=== PATIENT | female | born 2005 | race Caucasian/White ===

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

== ENCOUNTER 2025-02-26 13:10 | Emergency (ER) | payer BC, SELFPAY ==
--- OUTSIDE RECORDS SUMMARY | 2010-01-14 11:00 | XMS_ITS | Continuity of Care Document ---
Author Organization [facility] Address [address] [place] [address] Phone Care Team Providers Care Mill Operator Head Name Role Phone Foster OD, Ryan Unavailable Unavailable Procedures Procedure Date Eye Exam & Treatment Refraction Advance Directives Directive Yes / No Effective Date File Name No Information Encounters Encounter Description Practice Location Reason(s) For Visit Diagnoses Date Provider Providers Copied on Encounter [facility], [address], [place], [place], [id number], [place] tel:[phone] [facility] No Information [phone] Foster OD Ryan. [address] , [address], [place], [address], [place]. tel:[phone] Family History Family Member Type Diagnosis Age At Onset No Information Payers Payer name Insurance type Covered constitution party ID Authoriza tion(s) Medicaid [facility] [id number] Social History Type Description Quantity Date Captured [...]
--- OUTSIDE RECORDS SUMMARY | 2010-01-14 11:00 | XMS_ITS | Continuity of Care Document ---
Author Organization [facility] Address [address] [place] [address] Phone Care Team Providers Care Sports Activities Foul Judge Name Role Phone Foster OD, Ryan Unavailable Unavailable Procedures Procedure Date Eye Exam & Treatment Refraction Advance Directives Directive Yes / No Effective Date File Name No Information Encounters Encounter Description Practice Location Reason(s) For Visit Diagnoses Date Provider Providers Copied on Encounter [facility], [address], [place], [place], [id number], [place] tel:[phone] [facility] [place] No Information [phone] Foster OD Ryan. [address] , [address], [place], [address], [place]. tel:[phone] Family History Family Member Type Diagnosis Age At Onset No Information Payers Payer name Insurance type Covered constitution party ID Authoriza tion(s) Medicaid [facility] [id number] Social History Type Description Quantity Date Captured [...]
--- NOTE | ~2025-02-26 | XR_ITS ---
Examination: XR chest 1V portable Clinical History: Drug overdose Comparison: 12/25/2020 Technique: Portable AP Findings: Heart size normal. Hazy opacity left lung probably overlying soft tissue artifact. Lungs otherwise clear No acute bony abnormality. IMPRESSION: 1. No definite acute cardiopulmonary findings given portable technique. Can consider PA and lateral films. Reviewed, dictated and finalized at location R. IMPRESSION: 1. No definite acute cardiopulmonary findings given portable technique. Can co nsider PA and lateral films.
[2025-02-26 13:17] VITALS: BP 140/102; PULSE 118; RESP 16; TEMP 36.6; O2SAT 100
--- NOTE | 2025-02-26 13:23 | ECG_ITS ---
Test Date: 2025-02-26 13:30:54 Measurements Intervals Atkins Rate: 111 P: 23 VA: 159 QRS: 62 QRSD: 98 T: -1 QT: 319 QTc: 435 Interpretive Statements SINUS TACHYCARDIA NONSPECIFIC T-WAVE ABNORMALITY ABNORMAL ECG No previous ECG available for comparison Electronically Signed On 02-26-2025 16:51:24 CDT by Deep Young M.D.
--- NOTE | 2025-02-26 13:30 | ED_ITS ---
HPI - General Adult General Chief complaint: Overdose Stated complaint: Overdose Effexor Time Seen by Provider: 02/26/25 13:16 Source: patient Mode of arrival: ambulatory Limitations: no limitations History of Present Illness HPI narrative: 19 years old white female came to the ED by private car from home complaining of feeling worthless, depressed most of her life. Been in and out psych facility between 9 and 13 years old. Currently have psychiatrist and therapist, diagnosis of possible borderline personality disorder. At 10:00 a.m. today patient took venlafaxine 150 mg unknown numbers and venlafaxine 37.5 unknown numbers.. Patient went to sleep, workup scared and worry, crying, does not Wanna and feel guilty about what she did, grandmother brought her to the emergency room. Currently patient feeling guilty about what happened. And keeps repeating that she does Wanna and that is with big mistake. Related Data Home Medications ?Medication ?Instructions ?Recorded ?Confirmed ?Last Taken ?Type aripiprazole 2 mg tablet 2 mg PO HS 01/07/23 01/11/23 Unknown History venlafaxine 75 mg capsule,extended 150 mg PO DAILY 01/11/23 Unknown History release 24 hr Allergies Allergy/AdvReac Type Severity Reaction Status Date / Time amoxicillin (From Augmentin) AdvReac Mild Rash Verified 09/21/23 18:19 clavulanic acid (From AdvReac Mild Rash Verified 09/21/23 18:19 Augmentin) POTASSIUM CLAVULANATE AdvReac Mild Rash Uncoded 09/21/23 18:19 Review of Systems 2 Review of Systems: All systems reviewed & are unremarkable except as noted in HPI and below PMFSH Past Medical History Medical History Anxiety Surgical History Surgical History History of tonsillectomy Family History Family History Father Alcoholism Depression Anxiety Mother Alcoholism Anxiety Depression Thyroid disorder Grandparent Thyroid disorder Hypertension Social History Social History Smoking status: Never smoker Tobacco type: e-cigarettes/vaping Alcohol intake: never Substance use: never Living arrangements: other Additional living arrangements comments: With grandmother, legal guardian. Gender identity (if verbalized by the patient): Female Exam 2 Narrative: General appearance: Well-developed, well-nourished crying Skin: Normal color Head: Normocephalic, nontraumatic Eyes: Clear conjunctiva ENT: Oropharynx normal, ears normal, nose normal Neck: Supple, nontender Chest and respiratory: Airway patent, no respiratory distress, no accessory muscle use Heart: Regular rate/rhythm Abdomen: Soft, nontender, no organomegaly, quiet bowel sounds Vascular: Normal peripheral pulses, normal capillary refill. 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 is normal as tested, no gross motor deficit Course Vital Signs Vital signs: Vital Signs Temperature 36.6 C 02/26/25 13:17 Pulse Rate 118 H 02/26/25 13:17 Respiratory Rate 16 02/26/25 13:17 Blood Pressure 140/102 H 02/26/25 13:17 Pulse Oximetry 100 02/26/25 13:17 Oxygen Delivery Room Air 02/26/25 13:17 Temperature 36.6 C 02/26/25 13:17 Pulse Rate 102 H 02/26/25 19:50 Respiratory Rate 12 02/26/25 19:50 Blood Pressure 146/95 H 02/26/25 19:50 Pulse Oximetry 99 02/26/25 19:50 Oxygen Delivery Room Air 02/26/25 13:17 Medical Decision Making MDM Narrative Medical decision making narrative: Patient is medically clear for psych evaluation Patient cleared by poison Control for psych evaluation and admission Patient care turned over to Dr. Rao at shift change, awaiting disposition. Patient been resting quietly in the emergency room without any issues or problems. Differential Diagnosis Differential Diagnosis: serotonin syndrome, Major depression, anxiety, suicidal Vital Signs Vital Signs: Vital Signs Temperature 36.6 C 02/26/25 13:17 Pulse Rate 118 H 02/26/25 13:17 Respiratory Rate 16 02/26/25 13:17 Blood Pressure 140/102 H 02/26/25 13:17 Pulse Oximetry 100 02/26/25 13:17 Oxygen Delivery Room Air 02/26/25 13:17 Temperature 36.6 C 02/26/25 13:17 Pulse Rate 102 H 02/26/25 19:50 Respiratory Rate 12 02/26/25 19:50 Blood Pressure 146/95 H 02/26/25 19:50 Pulse Oximetry 99 02/26/25 19:50 Oxygen Delivery Room Air 02/26/25 13:17 Lab Data 02/26/25 13:28 02/26/25 13:28 Labs: Lab Results 02/26/25 02/26/25 Range/Units 13:28 13:32 WBC 12.0 H (4.5-10.0) K/mm3 RBC 4.85 (4.2-5.4) M/mm3 Hgb 14.3 (12.0-15.0) g/dL Hct 45.3 (37.0-47.0) % MCV 93.4 (80-100) fl MCH 29.5 (26-34) pg MCHC 31.6 L (32-36) g/dl RDW 12.4 (11.5-14.5) % Plt Count 286 (150-375) k/mm3 MPV 10.6 H (7.4-10.4) fl Immature Gran % (Auto) 0.9 H (0-0.5) % Neut % (Auto) 65.2 (45.5-73.1) % Lymph % (Auto) 28.7 (18.3-44.2) % [place] % (Auto) 4.6 (2.6-8.5) % Eos % (Auto) 0.4 (0-4.4) % Baso % (Auto) 0.2 (0.2-1.2) % Lymph # (Auto) 3.45 H (0.9-3.2) K/mm3 [place] # (Auto) 0.6 (0.1-0.6) K/mm3 Eos # (Auto) 0.1 (0-0.3) K/mm3 Baso # (Auto) 0.0 (0.0-0.1) K/mm3 Abs Immat Gran (auto) 0.11 H (0.00-0.031) K/mm3 Absolute Neuts (auto) 7.9 H (1.3-6.7) K/mm3 Absolute Nucleated RBC 0.000 (0.0-0.012) K/mm3 Nucleated RBC % 0.0 (0.0-0.2) % Sodium 139 (137-145) mmol/L Potassium 4.2 (3.4-5.0) mmol/L Chloride 106 (98-107) mmol/L Carbon Dioxide 28 (22-30) mmol/L Anion Gap 5 (4-12) mmol/L BUN 7 (7-17) mg/dL Creatinine 0.71 (0.7-1.0) mg/dL Estim Creat Clear Calc Not Reportable Estimated GFR > 60 (59 - ) Glucose 82 (65-110) mg/dL Calcium 9.5 (8.4-10.2) mg/dL Total Bilirubin 0.5 (0.2-1.3) mg/dL AST 35 (14-36) U/L ALT 50 H (6-35) U/L Alkaline Phosphatase 82 (38-126) U/L Total Protein 7.2 (6.3-8.2) g/dL Albumin 4.3 (3.5-5.1) g/dL TSH 3.490 (0.465-4.680) uIU/mL Urine Color Yellow (Yellow) Urine Appearance Clear (Clear) Urine pH 7.5 (5.0-9.0) Ur Specific [place] 1.009 (1.001-1.035) Urine Protein Negative (Negative) mg/dL Urine Glucose (UA) Negative (Negative) mg/dL Urine Ketones Negative (Negative) mg/dL Ur Blood (Man) Negative (Negative) Urine Nitrate Negative (Negative) Urine Bilirubin Negative (Negative) Urine Urobilinogen 0.2 (<2.0) mg/dL Leukocyte Esterase Rfl Negative (Negative) RICHAR/UL POC Urine HCG, Qual Negative (Negative) Salicylates < 1.0 L (2-20) mg/dL Urine Opiates Screen Negative (Negative) Urine Methadone Screen Negative (Negative) Acetaminophen < 10 L (10-30) ug/mL Ur Barbiturates Screen Negative (Negative) Ur Phencyclidine Scrn Negative (Negative) Ur Amphetamine Screen Negative (Negative) U Benzodiazepines Scrn Negative (Negative) Urine Cocaine Screen Negative (Negative) U Cannabinoids Screen Positive A (Negative) Ethyl Alcohol < 10 (<10) mg/dL SARS-CoV-2 RNA (RT-PCR) Negative (Negative) Imaging Data Radiologist's impression: Impressions Chest X-Ray 02/26/25 13:56 IMPRESSION: 1. No definite acute cardiopulmonary findings given portable technique. Can consider PA and lateral films. ECG Data EKG #1: Attestation: I personally reviewed and interpreted this ECG as follows: ECG completion date: 02/26/25 Ischemic changes: acute STEMI, acute NSTEMI, ST elevation, non-specific ST-T wave changes, q waves, poor r wave progression, t wave inversions, MD segment depression and other Interpretation: Sinus tachycardia 111 beats per minute, nonspecific T-wave abnormality, abnormal EKG Critical Care Time Critical Care Time Critical Care Time: Yes Total Critical Care Time: 30 Discharge Plan Discharge Clinical Impression: Depression with suicidal ideation Patient Disposition: Acute Care Hospital Condition: Stable Patient Language: Czech Prescriptions: No Action venlafaxine 75 mg capsule,extended release 24hr 150 mg PO DAILY triamcinolone acetonide 0.1 % cream 1 applic topical BID 7 Days Qty: 30 0RF aripiprazole 2 mg tablet 2 mg PO HS [id number] 3.5-10,000-1 mg/mL-unit/mL-% drops,suspension 5 drp LEFT EAR Q6H 7 Days Qty: 10 0RF cefdinir 300 mg capsule 300 mg PO Q12H 10 Days Qty: 20 0RF prednisone 50 mg tablet 50 mg PO DAILY Qty: 5 0RF Zyrtec 10 mg capsule 10 mg PO DAILY Qty: 30 0RF famotidine 20 mg tablet 20 mg PO DAILY Qty: 30 0RF Follow-up/Referrals: PHYSICIAN,LIBRARY CLERK [employer]ALKING [employer]OOKS [Primary Care Provider, Internal Medicine]
[2025-02-26 13:35] LABS: BEDSIDEPREGUCG Negative (Negative)
[2025-02-26 13:36] LABS: Hematocrit 45.3 % (37.0-47.0); Hemoglobin 14.3 g/dL (12.0-15.0); Immature Granulocyte Percent A 0.9 % (0-0.5); Lymphocytes Absolute Auto 3.45 K/mm3 (0.9-3.2); Mean Corpuscular HGB Conc 31.6 g/dl (32-36); Mean Corpuscular Hemoglobin 29.5 pg (26-34); Mean Corpuscular Volume 93.4 fl (80-100); Nucleated Red Blood Cells Absolute Auto 0.000 K/mm3 (0.0-0.012); Nucleated Red Blood Cells Perc 0.0 % (0.0-0.2); Platelet Count Result 286 k/mm3 (150-375); Red Blood Count 4.85 M/mm3 (4.2-5.4); White Blood Count 12.0 K/mm3 (4.5-10.0)
[2025-02-26 13:48] LABS: Alanine Aminotransferase 50 U/L (6-35); Albumin Level 4.3 g/dL (3.5-5.1); Alkaline Phosphatase 82 U/L (38-126); Anion Gap 5 mmol/L (4-12); Aspartate Amino Transferase 35 U/L (14-36); Bilirubin,Total 0.5 mg/dL (0.2-1.3); Blood Urea Nitrogen 7 mg/dL (7-17); Calcium 9.5 mg/dL (8.4-10.2); Carbon Dioxide 28 mmol/L (22-30); Chloride 106 mmol/L (98-107); Estimated Glomerular Filt Rate > 60; Glucose 82 mg/dL (65-110); Potassium 4.2 mmol/L (3.4-5.0); Sodium 139 mmol/L (137-145); Total Protein 7.2 g/dL (6.3-8.2)
[2025-02-26 13:49] LABS: Acetaminophen < 10 ug/mL (10-30); Salicylate < 1.0 mg/dL (2-20)
--- NOTE | 2025-02-26 14:00 | PC.NURSE ---
This RN contacted poison control. They recommend observation until 1700 for possible GLUE BONE CRUSHER depression. Pt appears alert and oriented at this time, no sign/symptoms of respiratory depression. Pt gave the okay for this RN to update her grandmother on plan of care.
[2025-02-26] MEDS: SODIUM CHLORIDE 0.9% IV 1,000 ML 999 ML IV CONT (14:07)
[2025-02-26 14:13] LABS: SARS-CoV-2 RNA PCR Negative (Negative)
[2025-02-26 14:18] LABS: Cannabinoid Screen Urine Positive (Negative)
[2025-02-26 14:20] LABS: Thyroid Stimulating Hormone 3.490 uIU/mL (0.465-4.680)
[2025-02-26 14:55] LABS: Add Urine Microscopic? NO; Appearance Urine Clear (Clear); Glucose Urine UA Negative (Negative); Leukocyte Esterase Ur Negative LEU/UL (Negative); Nitrate Urine Negative (Negative); Specific Grav Ur 1.009 (1.001-1.035)
[2025-02-26] MEDS: NICOTINE (*PBKC) 21 MG PATCH 1 PATCH TRANSDERM (17:14)
[2025-02-26 19:50] VITALS: BP 146/95; PULSE 102; RESP 12; O2SAT 99
[2025-02-26 23:33] VITALS: BP 138/101; PULSE 104; RESP 16; TEMP 36.6; O2SAT 99
[2025-02-27] MEDS: LORazepam (*CRX) 0.5 MG TABLET PO (01:11)
[2025-02-27] MEDS: MELATONIN 5 MG TABLET PO (02:34)
[2025-02-27] MEDS: NICOTINE (*PBKC) 21 MG PATCH 1 PATCH TRANSDERM ×2 (03:13→09:07)
--- NOTE | 2025-02-27 03:13 | PC.NURSE ---
Pt taken upstairs by electronics engineering technologist Valencia and Dusty Toure to shower. Pt provided lotion and shampoo/conditioner. Linen changed and rest of belongings placed in locked cabinet. Pt nicotine patch removed during shower and pt provided new patch. Pt provided new ice water. Call light within reach. No further requests or needs at this time.
--- NOTE | 2025-02-27 04:12 | PC.NURSE ---
Paperwork faxed to [facility]. [facility] requiring 24 hr obs prior to accepting patient. [facility] full.
--- NOTE | 2025-02-27 04:52 | PC.NURSE ---
Pt accepted to [facility] in [place], [place]. Accepting provider Alvaro Lora NP. Pt able to arrive after 1030am. Report called to JASWINDER Randall at [phone].
[2025-02-27] MEDS: diphenhydrAMINE HCl CAP 25 MG CAPSULE PO (06:31)
--- NOTE | 2025-02-27 06:39 | PC.NURSE ---
RN updated pt family about transfer with pt approval. Family was given address and phone number information to [facility]. Pt family was informed of ETA for transfer to [facility]. Pt approved all this information was okay to give to her family.
[2025-02-27 07:35] VITALS: BP 122/84; PULSE 94; RESP 18; TEMP 36.4; O2SAT 100
== END 2025-02-27 11:03 ==
PROVIDERS: Emergency Provider Emergency Medicine
DX: F32.A Depression, unspecified (principal); T43.212A Poisoning by selective serotonin and norepinephrine reuptake inhibitors, intentional self-harm, initial encounter; Z11.52 Encounter for screening for COVID-19; R00.0 Tachycardia, unspecified; R94.31 Abnormal electrocardiogram [ECG] [EKG]
CPT/HCPCS: 36415; 71045; 80053; 80143; 80179; 80307; 81003; 81025; 82077; 84443; 85025; 87635; 93005; 96360; 99285; A9270; J7030

== ENCOUNTER 2025-04-01 16:40 | Emergency (ER) | payer BC, SELFPAY ==
--- OUTSIDE RECORDS SUMMARY | 2010-01-14 11:00 | XMS_ITS | Continuity of Care Document ---
Author Organization [facility] Address [address] [place] [address] Phone Care Team Providers Care Channeler Insole Name Role Phone Foster OD, Ryan Unavailable Unavailable Procedures Procedure Date Eye Exam & Treatment Refraction Advance Directives Directive Yes / No Effective Date File Name No Information Encounters Encounter Description Practice Location Reason(s) For Visit Diagnoses Date Provider Providers Copied on Encounter [facility], [address], [place], [place], [id number], [place] tel:[phone] [facility] No Information 5-201 0 Foster OD Ryan. [address] , [address], [place], [address], [place]. tel:[phone] Family History Family Member Type Diagnosis Age At Onset No Information Payers Payer name Insurance type Covered green party ID Authoriza tion(s) Medicaid [facility] [id number] Social History Type Description Quantity Date Captured Comments Sex Female Smoking Status No Information Chief Complaint And Reason For Visit No Information Reason For Referral Reason For Referral No Information History Of Present Illness Encounter Date Complaint History Of Prese nt Illness No Information Functional Status Date Functional Assessmen t No Information Instructions Date Instruction Additional Infor mation No Information Assessments Type Assessment Date No Information Patient Care Teams Name Effective Dates (start - stop) Status Members No Information
--- OUTSIDE RECORDS SUMMARY | 2010-01-14 11:00 | XMS_ITS | Continuity of Care Document ---
Author Organization [facility] Address [address] [place] [address] Phone Care Team Providers Care Batch Tester Name Role Phone Foster OD, Ryan Unavailable Unavailable Procedures Procedure Date Eye Exam & Treatment Refraction Advance Directives Directive Yes / No Effective Date File Name No Information Encounters Encounter Description Practice Location Reason(s) For Visit Diagnoses Date Provider Providers Copied on Encounter [facility], [address], [place], [place], [address], [place] tel:[phone] [facility] No Information [phone] Foster OD Ryan. [address] , [address], [place], [address], [place]. tel:[phone] Family History Family Member Type Diagnosis Age At Onset No Information Payers Payer name Insurance type Covered alliance party ID Authoriza tion(s) Medicaid [facility] [id number] Social History Type Description Quantity Date Captured [...]
--- NOTE | 2025-04-01 16:51 | ED.URI ---
HPI - URI/Sore Throat General Chief Complaint: Upper Respiratory Infection Stated Complaint: URI Symptoms Time Seen by Provider: 04/01/25 17:12 Source: patient and RN notes reviewed Mode of arrival: ambulatory Limitations: no limitations History of Present Illness HPI Narrative: 20-year-old female presents with concern for several day history of runny nose, stuffy nose, cough, sore throat. She has been taking [id number] medications without relief. MD elicited complaint: cough and sore throat Related Data Home Medications ?Medication ?Instructions ?Recorded ?Confirmed ?Last Taken ?Type aripiprazole 2 mg tablet 2 mg PO HS 01/07/23 01/11/23 Unknown History venlafaxine 75 mg capsule,extended 150 mg PO DAILY 01/07/23 01/11/23 Unknown History release 24 hr Allergies Allergy/AdvReac Type Severity Reaction Status Date / Time amoxicillin (From Augmentin) AdvReac Mild Rash Verified 04/01/25 16:55 clavulanic acid (From AdvReac Mild Rash Verified 04/01/25 16:55 Augmentin) POTASSIUM CLAVULANATE AdvReac Mild Rash Uncoded 09/21/23 18:19 Review of Systems Review of Systems: CONSTITUTIONAL: Denies malaise, chills, sweats, or fever. EYES: Denies visual changes, redness, or discharge. ENT: Reports rhinorrhea, congestion, sinus pain, and sore throat. CARDIOVASCULAR: Denies chest pain, palpitations, or edema. RESPIRATORY: Reports cough. Denies dyspnea. GASTROINTESTINAL: Denies abdominal pain, nausea, vomiting, diarrhea SKIN: Denies rash or itching. MUSCULOSKELETAL: Denies myalgia. NEUROLOGIC: Denies headache. All systems reviewed & are unremarkable except as noted in HPI and below PMFSH Past Medical History Medical History Anxiety Surgical History Surgical History History of tonsillectomy Family History Family History Father Alcoholism Depression Anxiety Mother Alcoholism Anxiety Depression Thyroid disorder Grandparent Thyroid disorder Hypertension Social History Social History Smoking status: Never smoker Tobacco type: e-cigarettes/vaping Alcohol intake: never Substance use: never Living arrangements: other Additional living arrangements comments: With grandmother, legal guardian. Gender identity (if verbalized by the patient): Female Comments At time of signature, agree with nursing past medical, surgical, social and family history. There is no relevant family history pertinent to the presenting complaint Exam Narrative: GENERAL: Well-appearing, well-nourished, and in no acute distress. HEAD: Normocephalic EYES: PERRLA, conjunctivae clear ENT: Nares clear, turbinates edematous and erythematous, clear discharge. Mucous membranes moist. TM pearly mora with dull light reflex bilaterally; no tragal tenderness. Oropharynx not erythematous without lesions. Tonsils not enlarged and without exudate, no drooling, no hoarseness, no trismus, uvula midline. NECK: Supple. No lymphadenopathy CHEST: Clear to auscultation, breath sounds equal. No wheezing, rhonchi, rales, or stridor. No respiratory distress, speaks in full sentences. HEART: Regular rate and rhythm. No murmur heard. SKIN: Warm, dry, no rash. NEURO: Alert and oriented x3. PSYCH: Normal mood and affect Course Course Emergency Course: Patient is aware of diagnosis, understands and agrees to treatment plan. Anticipatory guidance given. Patient agrees to follow-up as directed and is aware of reasons to seek care at the emergency department. Portions of this record may have been created with voice recognition software Level of Care: Express Care Visit Vital Signs Vital signs: Reviewed. MDM - URI/Sore Throat MDM Narrative Medical decision making narrative: Differential diagnosis considered: Monge virus, strep pharyngitis, allergic rhinitis, upper respiratory tract infection, sinusitis, rhinosinusitis, nasopharyngitis. viral pharyngitis, otitis media, otitis externa, pneumonia, bronchitis, viral cough syndrome, viral syndrome, and influenza. Exam findings show no acute concerns or changes; patient is non-toxic appearing and is in no distress. Patient is appropriate for outpatient treatment and follow-up. Lab Data Attestation: I reviewed the patient's lab results. Critical Care Time Critical Care Time Critical Care Time: No Discharge Plan Discharge Clinical Impression: Upper respiratory infection Patient Disposition: Home Condition: Stable Instructions: Upper Respiratory Infection (ED) Additional Instructions: Your rapid COVID and flu tests are negative Your rapid strep swab was negative today at [facility]. A throat culture will be sent to the laboratory for further testing. If the test is positive, you will receive a phone call within 48 hours and an appropriate antibiotic will be initiated at that time. Your symptoms are likely due to a viral illness, which is not treated with antibiotics. Viral symptoms can be present for up to a few weeks. -Alternate Tylenol and Motrin per package directions for fever or pain. -Antihistamine medication such as Benadryl at night and Zyrtec during the day can help improve symptoms. -Frequent hand washing or hand band builder is one of the best ways to prevent spread of infection. -Follow up with primary care provider in 2-3 days if condition is not improving; or seek ER visit if you have trouble breathing, cannot drink enough fluids, have muffled voice, difficulty opening your mouth, or severe swelling. Patient Language: Ukrainian Prescriptions: New promethazine-DM 6.25-15 mg/5 mL syrup 5 ml PO Q4-6H PRN (Reason: cough) Qty: 120 0RF prednisone 20 mg tablet 40 mg PO DAILY 5 Days Qty: 10 0RF No Action venlafaxine 75 mg capsule,extended release 24hr 150 mg PO DAILY triamcinolone acetonide 0.1 % cream 1 applic topical BID 7 Days Qty: 30 0RF aripiprazole 2 mg tablet 2 mg PO HS [id number] 3.5-10,000-1 mg/mL-unit/mL-% drops,suspension 5 drp LEFT EAR Q6H 7 Days Qty: 10 0RF cefdinir 300 mg capsule 300 mg PO Q12H 10 Days Qty: 20 0RF prednisone 50 mg tablet 50 mg PO DAILY Qty: 5 0RF Zyrtec 10 mg capsule 10 mg PO DAILY Qty: 30 0RF famotidine 20 mg tablet 20 mg PO DAILY Qty: 30 0RF Follow-up/Referrals: UNKNOWN,DOCTOR [Primary Care Provider] Stand Alone Forms: Work/School Release IP Time of Disposition: 17:25
[2025-04-01 16:53] VITALS: BP 130/82; PULSE 95; RESP 20; TEMP 36.6; O2SAT 98
[2025-04-01 17:21] LABS: EDSTREPNEGPOS1 Negative (Negative)
[2025-04-01 17:23] LABS: EDCOVIDSCREEN Negative (Negative); EDINFLUASCREEN Negative (Negative); EDINFLUBSCREEN Negative (Negative)
--- OUTSIDE RECORDS SUMMARY | 2025-04-01 19:49 | XMS_ITS | Clinical Summary ---
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
== END 2025-04-01 17:26 | disposition home or self-care (01) ==
PROVIDERS: Emergency Provider Nurse Practitioner
DX: J06.9 Acute upper respiratory infection, unspecified (principal); Z20.822 Contact with and (suspected) exposure to COVID-19
CPT/HCPCS: 87081; 87426; 87804; 87880; 99213; G0463

== ENCOUNTER 2025-05-03 15:43 | Emergency (ER) | payer BC, SELFPAY ==
--- OUTSIDE RECORDS SUMMARY | 2025-05-03 15:46 | XMS_ITS | Clinical Summary ---
Author Organization [facility] Address [address] [address] Care Team Providers Care Shirt Finisher Name Role Phone Unavailable Primary Care Provider Unavailabl e Encounters Date Type Department Care Team Description 04/01/2025 External Device Data [facility] ABSTRACTION Provider, Abstract 02/25/2025 External Device Data [facility] ABSTRACTION Provider, Abstract from Last 3 Months Social History Tobacco Use Types Packs/Day Years Used Date Smoking Tobacco: Never Assessed Comments Unknown Sex and Gender Information Value Date Recorded Sex Assigned at Not on file 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
[2025-05-03 15:51] VITALS: BP 133/76; PULSE 100; RESP 18; TEMP 36.6; O2SAT 98
--- NOTE | 2025-05-03 15:55 | ED_ITS ---
HPI - Female Genitourinary General Chief complaint: Urogenital-Female Stated complaint: UTI patient presents to the [facility] with complaints of lower abdominal pressure, urinary frequency, and clear vaginal discharge that began over the last couple days. Patient reports symptoms did get slightly worse today and has concerns for yeast infection or urinary tract infection. Patient denies getting either of these frequently. Denies any vaginal odor or changes to any detergent, body washes, or any cleaning products. Denies any concerns for STDs at this time. Denies fever, chills, body aches, blood in urine, burning with urination, lower back pain, flank pain, or vaginal bleeding. Related Data Home Medications ?Medication ?Instructions ?Recorded ?Confirmed ?Last Taken ?Type brexpiprazole 1 mg tablet (Rexulti) mg 05/03/25 Unkno wn History duloxetine 30 mg capsule,delayed mg PO 05/03/25 Unkno wn History release oxcarbazepine 300 mg tablet mg 05/03/25 Unknown Histo ry Allergies Allergy/AdvReac Type Severity Reaction Status Date / Time amoxicillin (From Augmentin) Allergy Mild Rash Verified 05/03/25 15:56 clavulanic acid (From Allergy Mild Rash Verified 05/03/25 15:56 Augmentin) Review of Systems Constitutional: Constitutional: Reports as per HPI, Denies chills and Denies fatigue Eyes: Eyes: Reports no additional eye complaints Cardiovascular: Cardiovascular: Reports no additional cardiovascular complaints Respiratory: Respiratory: Reports no additional respiratory complaints Gastrointestinal: Gastrointestinal: Reports as per HPI, Reports abdominal pain, Denies bloating, Denies diarrhea, Denies nausea and Denies vomiting Genitourinary: Genitourinary: Reports as per HPI, Denies abnormal vaginal bleeding, Denies hematuria, Reports nocturia, Denies genital lesions, Denies dysuria, Denies pelvic pain, Denies flank pain, Denies urinary incontinence and Reports vaginal discharge Musculoskeletal: Musculoskeletal: Reports as per HPI, Denies back pain and Denies myalgias Integumentary/Breasts: Skin/Breast: Reports as per HPI, Denies pruritus, Denies erythema and Denies rash Neurologic: Reports as per HPI, Denies headache(s), Denies numbness and Denies weakness Psychiatric: Psychiatric: Reports no additional psychiatric complaints Endocrine: Endocrine: Reports no additional endocrine complaints Hematologic/Lymphatic: Hematologic/Lymphatic: Reports no additional hematologic/lymphatic complaints Allergic/Immunologic: Allergic/Immunologic: Reports no additional allergic/immunologic complaints PMFSH Past Medical History Medical History Anxiety Surgical History Surgical History History of tonsillectomy Family History Family History Father Alcoholism Depression Anxiety Mother Alcoholism Anxiety Depression Thyroid disorder Grandparent Thyroid disorder Hypertension Social History Social History Smoking status: Never smoker Tobacco type: e-cigarettes/vaping Alcohol intake: never Substance use: never Living arrangements: other Additional living arrangements comments: With grandmother, legal guardian. Gender identity (if verbalized by the patient): Female Exam Const: General: healthy appearing and no acute distress Nutritional Appearance: well nourished Orientation/consciousness: patient oriented x3 Limitations: no limitations Resp: Effort & Inspection: normal respiratory effort Auscultation: clear to auscultation bilaterally Cardio: Rate: regular rate Rhythm: regular rhythm GI: Inspection: non-distended GI Palp: Yes Soft to palpation, No Tenderness to palpation present (GI), No Guarding due to palpation present (GI), No Rigid due to palpation, No Hernia present and No Rebound tenderness present Auscult ation: normal bowel sounds : General: Yes bladder normal to palpation and Yes no CVA tenderness Urinary Catheter: Urinary Catheter: urine cloudy Back/Spine/Pelvis: Back: no CVA tenderness Skin: General skin exam: normal color Rashes: no rashes Wounds: no wounds Neuro: General: patient oriented x3 Speech: normal speech Gait exam (Neuro): Normal gait present Psych: Appearance: grossly normal Mental Status: mental status grossly normal Affect: normal affect Attitude: cooperative Course Course Level of Care: Express Care Visit Vital Signs Vital signs: Vital Signs Temperature 97.9 F 05/03/25 15:51 Pulse Rate 100 05/03/25 15:51 Respiratory Rate 18 05/03/25 15:51 Blood Pressure 133/76 05/03/25 15:51 Pulse Oximetry 98 05/03/25 15:51 Oxygen Delivery Room Air 05/03/25 15:51 Temperature 97.9 F 05/03/25 15:51 Pulse Rate 100 05/03/25 15:51 Respiratory Rate 18 05/03/25 15:51 Blood Pressure 133/76 05/03/25 15:51 Pulse Oximetry 98 05/03/25 15:51 Oxygen Delivery Room Air 05/03/25 15:51 MDM - Female Genitourinary MDM Narrative Medical decision making narrative: Testing for urine culture, vaginal culture for yeast, and bacterial vaginosis sent to the pharmacy. Patient declined vaginal exam in Express Care. The patient was evaluated by myself in the express care. History is obtained from patient who is an independent historian and physical exam was performed. Available medical records were reviewed at this time. Exam findings show no acute concerns or changes; patient is non-toxic appearing and is in no distress. Patient is appropriate for outpatient treatment and follow-up. I have evaluated and discussed social determinants of health with the patient that could potentially impact subsequent diagnosis and treatment plans. Differential diagnosis and treatment plan were discussed with the patient. Patient agrees with discussion and after shared medical decision making agrees with plan of care. All questions were answered to the patient's satisfaction. Differential Diagnosis Differential diagnosis: Likely urinary tract infection, bacterial vaginosis, trichomoniasis, vaginitis, cystitis and dysmenorrhea Medical Records Attestation: I reviewed the patient's medical records. Lab Data Attestation: I reviewed the patient's lab results. Discharge Plan Discharge Clinical Impression: Vaginal discharge, Increased urinary frequency Patient Disposition: Home Condition: Stable Instructions: Antibiotic Form, Bacterial Vaginosis (ED), Urinary Tract Infection in Women (ED), Yeast Infection (ED) Additional Instructions: We will send off a culture to look for a vaginal yeast infection and bacterial vaginosis. We will call you when these results are back if you need treatment. We will send a urine culture off to the lab; if the culture identifies an organism that the prescribed antibiotic will not treat, you will receive a phone call from an urgent care staff member and an appropriate antibiotic will be prescribed. -Your symptoms should begin to improve within a day of starting antibiotics. But you should finish all the antibiotic pills you get. Otherwise your infection might come back. -Also recommend: drink more fluid. It might help flush out germs, and it does no harm -Tylenol/ibuprofen as needed for pain -Follow-up with your primary care provider for urine recheck OR if your symptoms persist, change or worsen significantly before you can contact your personal physician then please, without delay, go to the emergency department for further evaluation. Patient Language: Malay Prescriptions: New nitrofurantoin monohyd/m-cryst [Macrobid] 100 mg capsule 100 mg PO Q12H 5 Days Qty: 10 0RF Rx Instructions: must administer with a meal/food No Action oxcarbazepine 300 mg tablet duloxetine 30 mg capsule,delayed release(DR/EC) PO Rexulti 1 mg tablet Follow-up/Referrals: UNKNOWN,DOCTOR [Primary Care Provider] Time of Disposition: 16:12
[2025-05-05 11:50] LABS: EDUAAPPEAR Cloudy; EDUABILI Negative (Negative); EDUABLOOD Negative (Negative); EDUACOLOR1 Yellow; EDUAGLUCOSE Negative (Negative); EDUAKETONE Negative (Negative); EDUALEUKO Negative (Negative); EDUANITRATE Negative (Negative); EDUAPH 6.0; EDUAPROTEIN Trace (Negative); EDUASPGRAVITY 1.030; EDUAUROBILI 0.2
== END 2025-05-03 16:18 | disposition home or self-care (01) ==
PROVIDERS: Emergency Provider Nurse Practitioner Family
DX: N89.8 Other specified noninflammatory disorders of vagina (principal); R35.0 Frequency of micturition
CPT/HCPCS: 81003; 87086; 87798; 99213; G0463